=== PATIENT | female | born 1965 | race Asian ===

== ENCOUNTER 2020-12-31 18:50 | Emergency (ER) | payer OTHER ==
[~2020-12-31] VITALS: Ht 160 cm; Wt 72.1 kg
[2020-12-31] MEDS ORDERED: METHOTREXATE 22.5 M1 PO (18:56)
[2020-12-31] MEDS ORDERED: CYCLOBENZAPRINE5 MG PO (22:24)
[2020-12-31 22:43] VITALS: BP 134/94
== END 2020-12-31 22:43 | disposition home or self-care (01) ==
LOC: ER 18:50
DX: S09.90XA Unspecified injury of head, initial encounter (principal); M54.2 Cervicalgia; M25.512 Pain in left shoulder; M62.838 Other muscle spasm; Z79.899 Other long term (current) drug therapy; V89.2XXA Person injured in unspecified motor-vehicle accident, traffic, initial encounter; Y93.I9 Activity, other involving external motion; Y92.488 Other paved roadways as the place of occurrence of the external cause; Y99.8 Other external cause status